=== PATIENT | female | born 1965 | race Caucasian/White ===

== ENCOUNTER 2022-10-27 13:18 | Outpatient (REF) | payer OTHER, SELFPAY ==
--- NOTE | ~2022-10-27 | XR_ITS ---
EXAMINATION: XR FINGER, LEFT CLINICAL INFORMATION: Crush injury COMPARISON: None available. TECHNIQUE: Three views of the left second finger. FINDINGS: There is question of a nondisplaced fracture of the distal tuft of the second finger with 2 radiopaque densities seen adjacent to the dorsal and palmar surfaces of the distal tuft on the lateral view only. Joint spaces are normal. Soft tissues are otherwise normal. XR/XR finger LT min 2V IMPRESSION: Question nondisplaced fracture of the distal tuft of the second finger.
== END 2022-10-27 13:19 | disposition home or self-care (01) ==
LOC: HO.HMGCX 13:18
PROVIDERS: PCP Internal Medicine Sports Medicine; Visit Provider Nurse Practitioner Family
DX: S67.191A Crushing injury of left index finger, initial encounter (principal)
CPT/HCPCS: 73140

== ENCOUNTER 2022-12-02 11:48 | Emergency (ER) | payer OTHER, SELFPAY ==
--- NOTE | ~2022-12-02 | CT_ITS ---
EXAMINATION: CT ABDOMEN AND PELVIS WITH CONTRAST CLINICAL INFORMATION: Right lower quadrant, left lower quadrant tenderness. COMPARISON: None available. TECHNIQUE: Multidetector volumetric images were obtained from the superior aspect of the liver through the pubic symphysis following administration 85 mL of Omnipaque 350 intravenous contrast. Sagittal and coronal reformatted images were obtained on the technologist's workstation. Oral contrast: No This CT examination was performed using dose optimization techniques as appropriate, variously including the following: *Automated exposure control *Adjustment of mA and/or kV according to patient size (this includes techniques or standardized protocols for targeted exams where dose is matched to indication/reason for exam; i.e. extremities or head) *Use of iterative reconstruction technique DLP: 351 mGy-cm FINDINGS: LUNG BASES: Mild bibasilar atelectasis. No pericardial or pleural effusion. LIVER, GALLBLADDER, AND BILIARY TREE: Low-attenuation liver as compared to the spleen, suggesting hepatic steatosis. No focal lesions. No biliary duct dilatation. There is a fatty sparing adjacent to the gallbladder. The gallbladder is unremarkable with no evidence of radiopaque gallstones, gallbladder wall thickening, or obvious pericholecystic inflammatory changes. PANCREAS: Unremarkable. No acute inflammatory changes. SPLEEN: Unremarkable. ADRENAL GLANDS: Unremarkable. KIDNEYS AND URETERS: The kidneys are normal in size, shape, and attenuation. No hydronephrosis, hydroureter, or calculi seen. No perinephric stranding. BLADDER: Partially distended. Mild wall prominence, could be related to degree of distention. GASTROINTESTINAL TRACT: The stomach is nondistended. There is apparent stomach wall thickening, evaluation limited by lack of distention. No small or large bowel obstruction. There is diverticulosis of the sigmoid colon. There is wall thickening of the sigmoid colon with haziness and stranding in the surrounding fat. Findings are suggestive of colitis/diverticulitis. No abscess is identified. No free air. There are dense foci within the appendix, which could reflect dense contents versus appendicoliths. No dilatation, wall thickening or surrounding inflammatory changes to suggest definite appendicitis. ABDOMINAL WALL: No significant hernia is appreciated. LYMPH NODES: Normal. VASCULAR: Normal caliber aorta PELVIC VISCERA: Nonspecific prominent vasculature associated with the uterus. Otherwise unremarkable. OSSEOUS STRUCTURES: Severe L5-S1 disc degeneration. CT/CT abdomen pelvis w IV con IMPRESSION: 1. Sigmoid diverticulosis. Wall thickening and surrounding inflammatory changes in the sigmoid colon, suspicious for diverticulitis/colitis. No abscess is identified. No free air. 2. Question appendicoliths in the appendix. No CT findings to suggest acute appendicitis at this stage. Short-term follow-up CT for reassessment as clinically warranted. 3. There is apparent prominent thickening of the stomach wall. Lack of distention limits evaluation. Underlying pathology such as gastritis cannot be excluded. Clinically correlate. Further evaluation with endoscopy or upper GI as clinically warranted. 4. Hepatic steatosis. Fleischner guidelines were followed.
[2022-12-02 11:56] VITALS: BP 121/86; PULSE 89; RESP 16; TEMP 36.6; O2SAT 98; BMI 24.6
--- NOTE | 2022-12-02 11:58 | ED_ITS ---
HPI - General Adult General Chief complaint: Abdominal Pain Stated complaint: vagina pain/ fever Time Seen by Provider: 12/02/22 14:14 Source: patient Mode of arrival: ambulatory Limitations: no limitations History of Present Illness HPI narrative: Patient is a 57-year-old female presenting with 2-3 days of lower abdominal cramping, low back pain, chills. Also endorses nausea but denies vomiting. Reports some constipation , denies diarrhea. States last bowel movement was yesterday but has been unable to have bowel movement today. Also reports urinating smaller amounts than normal. Denies dysuria or hematuria.Denies fevers. Denies chest pain or shortness of breath. She denies any abnormal vaginal discharge or concern for STIs. MD complaint: abdominal pain Onset (ago): day(s) Location: abdomen Radiation: back Severity: moderate Quality: other (cramping) Pain Consistency: constant Associated symptoms: fever/chills ( reports chills denies fever) and nausea/vomiting ( reports nausea denies vomiting) Treatments prior to arrival: none Related Data Home Medications Medication Instructions Recorded Confirmed lisinopril 20 mg tablet 20 mg PO DAILY 10/27/22 omeprazole 20 mg tablet,delayed 20 mg PO DAILY 10/27/22 release Previous Rx's Medication Instructions Recorded amoxicillin 875 mg-potassium 1 tab PO BID 7 days #14 tabs 12/02/22 clavulanate 125 mg tablet Allergies Allergy/AdvReac Type Severity Reaction Status Date / Time No Known Allergies Allergy Verified 12/02/22 11:56 Review of Systems Review of Systems: as per HPI. Yes all other systems are reviewed and are negative Constitutional: Constitutional: Reports as per HPI [facility] Social History Social History Alcohol intake: current Alcohol intake frequency: 0-2 drinks per day Alcohol type: wine Patient Tobacco Use Status: Former Tobacco user Smoked in Last 30 Days: No Use of substances other than those prescribed or required for medical reasons: Yes Substance Use Type: Marijuana Substance Use Frequency: Occasionally Advance Directives: No Patient : No (tubes tied) Physical Exam ED Vital Signs: Vital Signs - 24 hr 12/02/22 11:56 12/02/22 16:01 12/02/22 18:27 Temperature 98 F 100.5 F H 98.9 F Pulse Rate 89 72 Respiratory Rate 16 18 67 H Blood Pressure 121/86 116/62 108/60 Pulse Oximetry 98 95 95 Oxygen Delivery Method Room Air Room Air BMI result Body Mass Index 24.6 Vital signs have been reviewed and appear to be correct. Blood pressure normal. Heart rate normal. Respiratory rate normal. Temperature normal. Oxygen saturation normal. Const General: cooperative, healthy appearing and no acute distress Orientation/consciousness: oriented to person, oriented to place, oriented to time and patient oriented x3 Limitations: no limitations HENMT Head: Yes normocephalic and Yes atraumatic Ears: external ears normal General nose exam: Normal external nose present Face and sinus: Yes face symmetric Mouth: oropharynx normal and moist mucous membranes Throat: Yes uvula midline Eyes Pupils: Equal, round and reactive pupils present Neck Neck: Yes normal visual inspection and Yes supple Resp Effort & Inspection: normal respiratory effort and able to speak in complete sentences Auscultation: clear to auscultation bilaterally Cardio Rate: regular rate Rhythm: regular rhythm Heart sounds: S1 normal heart sound present and S2 normal heart sound present GI Inspection: Yes normal to inspection Palpation (GI): Soft to palpation, Tenderness to palpation present (GI) in the LLQ and in the RLQ; with no rebound tenderness and no guarding Auscultation: normoactive bowel sounds General: Yes no CVA tenderness Back/Spine/Pelvis Back: no CVA tenderness Skin General skin exam: elasticity normal and turgor normal Neuro General: oriented to person, oriented to place, oriented to time, patient oriented x3, moves all extremities, no focal motor deficits and CN's II-XI intact bilaterally Cranial nerves: Yes Equal, round and reactive pupils present Cognition (Neuro): normal cognition Extrem General: Yes full ROM, Yes no pedal edema and Yes no calf tenderness Psych Mental Status: mental status grossly normal Affect: normal affect Thought process: Normal thought process present Course Course Course Narrative: RME - 57 yo female presenting with suprapubic pain and lower back pain along with abdominal distention for the last 3 days. +chills Plan: UA and basic labs, exam in the ER CT abdomen pelvis w IV con IMPRESSION: 1. Sigmoid diverticulosis. Wall thickening and surrounding inflammatory changes in the sigmoid colon, suspicious for diverticulitis/colitis. No abscess is identified. No free air. ? 2. Question appendicoliths in the appendix. No CT findings to suggest acute appendicitis at this stage. Short-term follow-up CT for reassessment as clinically warranted. ? 3. There is apparent prominent thickening of the stomach wall. Lack of distention limits evaluation. Underlying pathology such as gastritis cannot be excluded. Clinically correlate. Further evaluation with endoscopy or upper GI as clinically warranted. ? 4. Hepatic steatosis. Fleischner guidelines were followed. >1905--on re-evaluation patient reports symptomatic improvement, still with mild residual suprapubic discomfort. Results discussed, patient feels safe for discharge home with p.o. antibiotics and close follow-up. Will discharge home with Augmentin. Patient is tolerating p.o. in the ED Results discussed with patient including worrisome signs and symptoms and strict return precautions, and when to return to the emergency department. They verbalized understanding and feel safe for discharge at this time. Medications Administered Discontinued Medications Generic Name Dose Route Start Last Admin Trade Name Freq PRN Reason Stop Dose Admin Ceftriaxone Sodium 1 gm/ 50 mls @ 100 mls/hr 12/02/22 16:28 12/02/22 16:40 Sodium Chloride IV 12/02/22 16:57 100 mls/hr ONCE ONE Administration Sodium Chloride 1,000 mls @ 999 mls/hr 12/02/22 16:30 12/02/22 16:36 Ns IV 12/02/22 17:30 999 mls/hr .Q1H1M MOHAN Administration Iohexol 100 ml 12/02/22 17:14 12/02/22 17:14 Iohexol 350 Mg/Ml 100 Ml Infus..Btl IV 12/02/22 17:15 85 ml ONCE ONE Administration Ketorolac Tromethamine 15 mg 12/02/22 16:35 12/02/22 16:40 Ketorolac Tromethamine 15 Mg/Ml Vial IVPUSH 12/02/22 16:36 15 mg ONCE ONE Administration Ondansetron HCl 4 mg 12/02/22 14:22 12/02/22 16:36 Ondansetron Hcl 4 Mg/2 Ml Vial IVPUSH 12/02/22 14:23 4 mg ONCE ONE Administration Medical Decision Making Medical Decision Making MDM Narrative: Patient is a 57-year-old female presenting with 2-3 days of lower abdominal cramping, low back pain, chills. On exam patient is awake, A+Ox3, VS WNL, afebrile, normal neurological exam without focal deficits, abdomen soft, bilateral lower quadrant tenderness, no CVA tenderness. Given reported symptoms and physical exam findings, initial differential includes UTI, diverticulitis, appendicitis, constipation. Less likely ovarian torsion or TOA as pain is bilateral. Labs notable for leukocytosis with left shift. Do not suspect sepsis. 16:21 Patient now febrile at 100.5, patient meeting sepsis criteria, will order abx and IV fluids. No evidence of UTI on UA. Patient signed out to MACKENZIE Santana pending CT results. Differential Diagnosis Differential Diagnoses: The differential diagnosis associated with the prese ntation includes As per MD. Admission/Observation Consideration of admission/observation: Escalation of care including admissi on/observation considered Lab Data [facility] Lab Attestation statement: I reviewed the patient's lab results. As per [facility]. 12/02/22 12:23 12/02/22 12:23 Labs: Lab Results 12/02/22 12/02/22 12/02/22 Range/Units 12:23 12:23 15:55 WBC 13.4 H (4.8-10.8) X10*3/uL RBC 4.04 L (4.20-5.50) X10*6/uL Hgb 12.3 (12.0-16.0) g/dl Hct 37.7 (37.0-47.0) % MCV 93.3 (80.0-98.0) fL MCH 30.4 (27.0-33.0) pg MCHC 32.6 (31.0-35.0) g/dl RDW 13.7 (11.0-16.0) % Plt Count 256 (160-400) X10*3/uL MPV 11.6 (9.4-12.3) fL Immature Gran % (Auto) 0.3 (0.0-0.4) % Neut % (Auto) 73.6 H (45-73) % Lymph % (Auto) 16.2 L (20-40) % [place] % (Auto) 9.5 (2-11) % Eos % (Auto) 0.3 (0-4) % Baso % (Auto) 0.1 (0-2) % Lymph # (Auto) 2.2 (1.2-4.9) X10*3/uL [place] # (Auto) 1.3 H (0.1-1.2) X10*3/uL Eos # (Auto) 0.0 (0.0-0.4) X10*3/uL Baso # (Auto) 0.0 (0.0-0.2) X10*3/uL Abs Immat Gran (auto) 0.04 H (0.00-0.03) X10*3/uL Absolute Neuts (auto) 9.8 H (2.0-8.3) x10*3/uL Absolute Nucleated RBC 0.000 (0.0-0.012) X10*3/uL Nucleated RBC % (auto) 0.0 (0.0-0.2) /100WBC Sodium 140 (135-145) mmol/L Potassium 4.6 (3.3-5.1) mmol/L Chloride 107 (96-108) mmol/L Carbon Dioxide 25 (22-29) mmol/L Anion Gap 13 (12-20) BUN 7 L (9-16) mg/dL Creatinine 0.82 (0.5-1.4) mg/dL Estim Creat Clear Calc TNP Estimated GFR > 60 Random Glucose 101 (60-115) mg/dL Calcium 10.3 H (8.4-10.2) mg/dL Magnesium 1.6 (1.6-2.6) mg/dL Total Bilirubin 0.8 (0.0-1.0) mg/dL Direct Bilirubin 0.3 (0.0-0.5) mg/dL AST 19 (5-31) U/L ALT 18 (0-31) U/L Alkaline Phosphatase 81 (39-117) U/L Total Protein 8.0 (6.5-8.0) g/dL Albumin 4.6 (3.5-5.0) g/dL Urine Color Yellow Urine Appearance Clear Urine pH 6.0 (5.0-9.0) Ur Specific [place] 1.015 (1.005-1.025) Urine Protein Negative (Neg-Trace) mg/dL Urine Glucose (UA) Negative (Negative) mg/dL Urine Ketones Negative (Negative) mg/dL Urine Blood Negative (Negative) Urine Nitrite Negative (Negative) Ur Leukocyte Esterase Negative (Negative) Independent Interpretation I performed an independent interpretation of an: CT Scan External Record Review External record reviewed: Inpatient record, Office record and Outpatient record Discharge Plan Discharge Clinical Impression: Diverticulitis Patient Disposition: Home, Self-Care Instructions: Diverticulitis (ED) Additional Instructions: You have diverticulitis. Augmentin is an antibiotic please take as prescribed Practice a bland diet/clear liquids for the next few days If you are unable to eat or drink, persistent nausea/vomiting, fever or unbearable pain return to the emergency department Please have close follow-up with her doctor and Gastroenterology Prescriptions: New amoxicillin-pot clavulanate 875-125 mg tablet 1 tab PO BID 7 Days Qty: 14 0RF No Action lisinopril 20 mg tablet 20 mg PO DAILY omeprazole 20 mg tablet,delayed release (DR/EC) 20 mg PO DAILY Referrals: [facility] [place] [facility] [Provider Group] Vijay Lombardi MD [Primary Care Provider] -
[2022-12-02 12:27] LABS: MANUAL DIFF FLAG NO
[2022-12-02 12:28] LABS: Basophils Percent Auto 0.1 % (0-2); Eosinophils Percent Auto 0.3 % (0-4); Hematocrit 37.7 % (37.0-47.0); Hemoglobin 12.3 g/dl (12.0-16.0); Imm Gran Abs Auto 0.04 X10*3/uL (0.00-0.03); Imm Gran Pct Auto 0.3 % (0.0-0.4); Lymphocytes Absolute Auto 2.2 X10*3/uL (1.2-4.9); Lymphocytes Percent Auto 16.2 % (20-40); Mean Corpuscular HGB Conc 32.6 g/dl (31.0-35.0); Mean Corpuscular Hemoglobin 30.4 pg (27.0-33.0); Mean Corpuscular Volume 93.3 fL (80.0-98.0); Mean Platelet Volume 11.6 fL (9.4-12.3); Monocytes Absolute Auto 1.3 X10*3/uL (0.1-1.2); Monocytes Percent Auto 9.5 % (2-11); Neutrophils Absolute Auto 9.8 x10*3/uL (2.0-8.3); Neutrophils Percent Auto 73.6 % (45-73); Platelet Count 256 X10*3/uL (160-400); Red Blood Count 4.04 X10*6/uL (4.20-5.50); Red Cell Distribution Width 13.7 % (11.0-16.0); White Blood Count 13.4 X10*3/uL (4.8-10.8)
[2022-12-02 12:42] LABS: Alanine Aminotransferase 18 U/L (0-31); Albumin Level 4.6 g/dL (3.5-5.0); Alkaline Phosphatase 81 U/L (39-117); Anion Gap 13 (12-20); Aspartate Amino Transferase 19 U/L (5-31); Bilirubin Direct 0.3 mg/dL (0.0-0.5); Bilirubin Total 0.8 mg/dL (0.0-1.0); Blood Urea Nitrogen 7 mg/dL (9-16); Calcium 10.3 mg/dL (8.4-10.2); Carbon Dioxide 25 mmol/L (22-29); Chloride 107 mmol/L (96-108); Estimated Glomerular Filt Rate > 60; Glucose Random 101 mg/dL (60-115); Magnesium 1.6 mg/dL (1.6-2.6); Potassium 4.6 mmol/L (3.3-5.1); Sodium 140 mmol/L (135-145)
[2022-12-02 16:01] VITALS: BP 116/62; PULSE 72; RESP 18; TEMP 38.1; O2SAT 95
[2022-12-02 16:01] LABS: Appearance Urine Clear; Color Urine Yellow; Glucose Urine UA Negative (Negative); Leukocyte Esterase Urine Negative (Negative); Nitrite Urine Negative (Negative); Specific Gravity - Urine 1.015 (1.005-1.025); Urine Blood Negative (Negative); Urine Ketones Negative (Negative); Urine Protein Negative (Neg-Trace)
[2022-12-02] MEDS: 0.9 % Sodium Chloride 1,000 ML 999 ML IV (16:36)
[2022-12-02] MEDS: ondansetron HCL 4 MG/2 ML VIAL IVPUSH (16:36)
[2022-12-02] MEDS: Ketorolac Tromethamine 15 MG/ML VIAL IVPUSH ×2 (16:40→19:26)
[2022-12-02] MEDS: cefTRIAXone sodium 1 GM in 0.9 % Sodium Chloride 50 ML IV (16:40)
[2022-12-02] MEDS: iohexoL 350 MG/ML 100 ML INFUS..BTL IV (17:14)
[2022-12-02 18:27] VITALS: BP 108/60; RESP 67; TEMP 37.2; O2SAT 95
== END 2022-12-02 19:29 | disposition home or self-care (01) ==
PROVIDERS: Physician Assistant; Emergency Provider Emergency Medicine; PCP Internal Medicine Sports Medicine
DX: K57.32 Diverticulitis of large intestine without perforation or abscess without bleeding (principal); M54.50 Low back pain, unspecified; Z87.891 Personal history of nicotine dependence; Z79.899 Other long term (current) drug therapy
CPT/HCPCS: 36415; 74177; 80048; 80076; 81003; 83735; 85025; 96361; 96374; 96375; 96376; 99284; 99285; J0696; J1885; J2405; Q9967

== ENCOUNTER 2023-01-18 08:05 | Outpatient (AMB) | payer OTHER, SELFPAY ==
[2023-01-18 08:24] VITALS: BP 102/62; PULSE 55; TEMP 36.4; O2SAT 100; BMI 24.2
--- NOTE | 2023-01-18 08:24 | AM.OFFWIN_ITS ---
Intake Vital Signs 01/18/23 08:24 Height 5 ft Weight 124 lb BMI 24.2 BP 102/62 Blood Pressure Location Rt brachial Position Sitting Pulse 55 Pulse Source Pulse Oximeter Temp 97.6 F Temp Source Temporal Artery Scan Pulse Oximetry (%) 100 Oxygen Delivery Method Room Air Intake Visit Reasons: EP ?Sinus/Congestion (Masked) Intake Note: pt is here for c/o sinus/congestion, headache over week Patient Tobacco Use Status: Former Tobacco user Allergies No Known Allergies Allergy (Verified 01/18/23 08:53) Medication List - Last Reconciled 01/18/23 by Justice Jordan MD lisinopril 20 mg PO DAILY omeprazole 20 mg PO DAILY Do you need a note to return to daycare/school/sports/work: Yes HPI EP ?Sinus/Congestion (Masked) HPI Details Patient presents for a sick visit. Reporting symptoms of sinus congestion, sore throat and difficulty swallowing. Low-grade fever. No family member is sick. No recent travel. Patient reports symptoms of malaise and fatigue. [facility] Social History Alcohol intake: current Alcohol intake frequency: 0-2 drinks per day Alcohol type: wine Patient Tobacco Use Status: Former Tobacco user Substance Use Type: Marijuana Physical Exam Vital Signs: Last Vital Signs Temp 97.6 F 01/18/23 08:24 Pulse 55 01/18/23 08:24 BP 102/62 01/18/23 08:24 Pulse Ox 100 01/18/23 08:24 Oxygen Delivery Method Room Air 01/18/23 08:24 BMI result Body Mass Index 24.2 Const General: cooperative and healthy appearing Nutritional Appearance: well nourished Orientation/consciousness: patient oriented x3 Limitations: no limitations HEENT Head: Yes normal to inspection Eyes General: appearance normal, both eyes and all related structures Neck Neck: Yes normal visual inspection Chest Chest palpation & inspection: normal palpation of entire chest wall Resp Effort & Inspection: normal respiratory effort Neuro General: patient oriented x3 Assessment & Plan Assessment & Plan (1) Upper respiratory tract infection: Code(s): J06.9 - Acute upper respiratory infection, unspecified Plan: Antibiotics ordered. Increase fluid intake. Tylenol for aches and pains. If symptoms worsen, follow-up here for a recheck. Coding Level of Care Code Est Pt Level 3 (67514) Diagnoses Upper respiratory tract infection J06.9
== END 2023-01-18 09:57 | disposition home or self-care (01) ==
PROVIDERS: PCP Internal Medicine Sports Medicine; Visit Provider Internal Medicine
DX: J06.9 Acute upper respiratory infection, unspecified (principal)
CPT/HCPCS: 99213

== ENCOUNTER 2023-01-18 09:48 | Outpatient (REF) | payer OTHER, SELFPAY ==
[2023-01-18 12:23] LABS: Influenza A PCR NEGATIVE (Negative); Influenza B PCR NEGATIVE (Negative); Resp Syncy Virus RNA Qual PCR NEGATIVE (Negative); SARS COV2 PCR INHOUSE NEGATIVE (Negative)
== END 2023-01-18 09:49 | disposition home or self-care (01) ==
LOC: HO.LAB 09:48
PROVIDERS: Visit Provider Internal Medicine
DX: R43.9 Unspecified disturbances of smell and taste (principal); Z20.828 Contact with and (suspected) exposure to other viral communicable diseases
CPT/HCPCS: 0241U

== ENCOUNTER 2023-01-20 14:54 | Outpatient (AMB) | payer OTHER, SELFPAY ==
--- NOTE | 2023-01-20 15:00 | MHC.OFFWIV ---
Intake Vital Signs 01/20/23 15:01 Height 5 ft Weight 123 lb 6 oz BMI 24.1 BP 120/70 Blood Pressure Location Rt brachial Position Sitting Pulse 72 Pulse Source Pulse Oximeter Temp 97.3 F Temp Source Temporal Artery Scan Pulse Oximetry (%) 97 Oxygen Delivery Method Room Air Intake Visit Reasons: EST/meds not working Intake Note: pt is here for c/o medication not working for upper resp infection Patient Tobacco Use Status: Former Tobacco user Allergies No Known Allergies Allergy (Verified 01/23/23 06:54) Medication List - Last Reconciled 01/23/23 by Justice Jordan MD albuterol sulfate 90 mcg/actuation (Ventolin HFA) 1 inh inhalation QID PRN azithromycin take 500 mg today (day 1), then 250 mg for 4 days (days 2-5) PO lisinopril 20 mg PO DAILY omeprazole 20 mg PO DAILY Do you need a note to return to daycare/school/sports/work: No HPI EST/meds not working HPI Details 57-year-old female presents to the office for a sick visit. Patient was recently seen for an upper respiratory tract infection. Today is day 3 of her antibiotics. She reports no improvement in symptoms. Continues to have sinus headache and congestion. [facility] Social History Alcohol intake: current Alcohol intake frequency: 0-2 drinks per day Alcohol type: wine Patient Tobacco Use Status: Former Tobacco user Substance Use Type: Marijuana Physical Exam Vital Signs: Last Vital Signs Temp 97.3 F 01/20/23 15:01 Pulse 72 01/20/23 15:01 BP 120/70 01/20/23 15:01 Pulse Ox 97 01/20/23 15:01 Oxygen Delivery Method Room Air 01/20/23 15:01 BMI result Body Mass Index 24.1 Const General: cooperative and healthy appearing Nutritional Appearance: well nourished Orientation/consciousness: patient oriented x3 Limitations: no limitations HEENT Head: Yes normal to inspection Eyes General: appearance normal, both eyes and all related structures Neck Neck: Yes normal visual inspection Chest Chest palpation & inspection: normal palpation of entire chest wall Resp Effort & Inspection: normal respiratory effort Neuro General: patient oriented x3 Assessment & Plan Assessment & Plan (1) Upper respiratory tract infection: Code(s): J06.9 - Acute upper respiratory infection, unspecified Qualifiers: URI type: unspecified URI Qualified Code(s): J06.9 - Acute upper respiratory infection, unspecified Plan: Advised to complete the current antibiotic course. Informed her that the COVID test was negative. Increase fluids intake. Coding Level of Care Code Est Pt Level 3 (45747) Diagnoses Upper respiratory tract infection, unspecified type J06.9 URI type: unspecified URI
[2023-01-20 15:01] VITALS: BP 120/70; PULSE 72; TEMP 36.3; O2SAT 97; BMI 24.1
== END 2023-01-20 16:07 | disposition home or self-care (01) ==
PROVIDERS: PCP Internal Medicine Sports Medicine; Visit Provider Internal Medicine
DX: J06.9 Acute upper respiratory infection, unspecified (principal)
CPT/HCPCS: 99213